=== PATIENT | male | born 1965 | race Caucasian/White ===

== ENCOUNTER 2022-02-22 13:18 | Emergency (ER) | payer OTHER ==
--- NOTE | 2022-02-22 13:23 | ERPHSYRPT ---
- History of Present Illness Time Seen by Provider: 02/22/22 13:22 Source: patient Exam Limitations: no limitations Physician History: This is a 56-year-old white male smoker of cigarettes and who is a patient of Dr. Mata who presents to the emergency department with shortness of breath and cough for 2 days. His significant other was hospitalized with influenza A infection. Patient denies chest pain. He denies abdominal pain. He has no nausea vomiting or diarrhea symptoms. He is an insulin-dependent diabetic and has hypertension. Timing/Duration: day(s) (2) Activities at Onset: none Severity of Dyspnea-Max: moderate Severity of Dyspnea-Current: moderate Possible Cause: no prior episodes Modifying Factors: Improves With: coughing, oxygen Associated Symptoms: cough, No chest pain/discomfort, No calf pain, No leg swelling Allergies/Adverse Reactions: albuterol Allergy (Verified 02/22/22 13:20) Home Medications: Empagliflozin/Metformin HCl [Synjardy Xr 25-1,000 mg Tablet] 1 each PO DAILY 02/22/22 [History] Escitalopram Oxalate [Lexapro] 20 mg PO DAILY 02/22/22 [History] Insulin Glargine,Hum.rec.anlog [Basaglar Kwikpen U-100] 50 unit SQ HS 02/22/22 [History] Insulin Lispro [Humalog Kwikpen] 10 unit SQ TIDWM 02/22/22 [History] Losartan Potassium 50 mg [Cozaar 50 MG] 50 mg PO DAILY 02/22/22 [History] Metoprolol Tartrate 25 mg [Lopressor 25MG Tab] 12.5 mg PO BID 02/22/22 [History] Omeprazole 20 mg PO DAILY 02/22/22 [History] Tizanidine HCl [Zanaflex] 1 mg PO BIDPRN PRN 02/22/22 [History] Travel Risk - International Travel Have you traveled outside of the country in past 3 weeks: No - Coronavirus Screening Are you exhibiting any of the following symptoms?: Yes Symptoms: Cough: New Onset, Shortness of Breath Close contact with a COVID-19 positive Pt in past 14-21 Days: No - Review of Systems Constitutional: No Symptoms Eyes: No Symptoms Ears, Nose, & Throat: No Symptoms Respiratory: Cough, Dyspnea Cardiac: No Symptoms Abdominal/Gastrointestinal: No Symptoms Genitourinary Symptoms: No Symptoms Musculoskeletal: No Symptoms Skin: No Symptoms Neurological: No Symptoms Psychological: No Symptoms Endocrine: No Symptoms Hematologic/Lymphatic: No Symptoms Immunological/Allergic: No Symptoms All Other Systems: Reviewed and Negative - Past Medical History Pertinent Past Medical History: Yes - Nursing Vital Signs Nursing Vital Signs: Initial Vital Signs Temperature 100.8 F 02/22/22 13:20 Pulse Rate 130 H 02/22/22 13:20 Respiratory Rate 32 H 02/22/22 13:20 Blood Pressure 146/126 02/22/22 13:20 O2 Sat by Pulse Oximetry 88 L 02/22/22 13:20 Pain Scale Pain Intensity 0 - Physical Exam General Appearance: mild distress, alert, anxiety, obese Eye Exam: PERRL/EOMI, eyes nml inspection Ears, Nose, Throat Exam: hearing grossly normal, normal ENT inspection, normal pharynx Neck Exam: normal inspection, non-tender, supple, full range of motion Respiratory Exam: normal breath sounds, lungs clear, respiratory distress (Mild), airway intact, No chest tenderness Cardiovascular/Chest Exam: normal heart sounds, regular rate/rhythm Abdominal/Gastrointestinal Exam: soft, normal bowel sounds, No tenderness Rectal Exam: not done Extremity Exam: non-tender, normal range of motion, normal inspection, no calf tenderness, no pedal edema, pelvis stable Neurologic Exam: alert, oriented x 3, cooperative, 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 STAT Care 02/22/22 13:42 Active EKG-ER Only STAT Care 02/22/22 13:41 Active IV Insertion STAT Care 02/22/22 13:41 Active POCT Glucose Check STAT Care 02/22/22 14:17 Active CHEST 1 VIEW (PORTABLE) Stat Exams 02/22/22 13:41 Completed CHEST WITH CONTRAST [CT] Stat Exams 02/22/22 14:47 Ordered ABG [ARTERIAL BLOOD GASES] Stat Lab 02/22/22 14:37 Completed BLOOD CULTURE Stat Lab 02/22/22 13:53 Received CBC W DIFF Stat Lab 02/22/22 13:45 Completed CMP Stat Lab 02/22/22 13:45 Completed CULTURE,URINE Stat Lab 02/22/22 14:37 Received D-DIMER QUANTITATIVE Stat Lab 02/22/22 13:45 Completed Lactic Acid Stat Lab 02/22/22 14:10 Completed Bandera Screen Stat Lab 02/22/22 Completed NT PRO BNP Stat Lab 02/22/22 13:45 Completed POCT GLUCOSE Stat Lab 02/22/22 14:16 Completed TROPONIN Q3H Lab 02/22/22 13:45 Completed TROPONIN Q3H Lab 02/22/22 16:45 Ordered TROPONIN Q3H Lab 02/22/22 19:45 Ordered TROPONIN Q3H Lab 02/22/22 22:45 Ordered TROPONIN Q3H Lab 02/23/22 01:45 Ordered UA W/RFX CULTURE Stat Lab 02/22/22 14:37 Completed Urine Triage Profile Stat Lab 02/22/22 14:17 Completed Medication Summary Discontinued Medications Generic Name Dose Route Start Last Admin Trade Name Freq PRN Reason Stop Dose Admin Hydrocodone Bitart/Acetaminophen 10 ml 02/22/22 13:42 02/22/22 13:47 Hydrocodone/Acetaminophen 5 Ml Udcup PO 02/22/22 13:43 10 ml STAT STA Administration Hydrocodone Bitart/Acetaminophen Confirm 02/22/22 13:45 Hydrocodone/Acetaminophen 5 Ml Udcup Administered 02/22/22 13:46 Dose 10 ml .ROUTE .STK-MED ONE Methylprednisolone Sodium 0 mg 02/22/22 13:41 02/22/22 13:47 Succinate 125 mg/ Sterile IV 02/22/22 13:42 125 mg Water 2 ml STAT ONE Administration Enoxaparin Sodium 100 mg 02/22/22 15:02 02/22/22 15:19 Enoxaparin Sodium 120 Mg/0.8 Ml Syringe SQ 02/22/22 15:03 100 mg STAT STA Administration Enoxaparin Sodium Confirm 02/22/22 15:16 Enoxaparin Sodium 120 Mg/0.8 Ml Syringe Administered 02/22/22 15:17 Dose 120 mg SQ .STK-MED ONE Furosemide 40 mg 02/22/22 14:30 02/22/22 14:31 Furosemide 40 Mg/4 Ml Vial IV 02/22/22 14:31 40 mg STAT ONE Administration Furosemide Confirm 02/22/22 14:30 Furosemide 40 Mg/4 Ml Vial Administered 02/22/22 14:31 Dose 40 mg .ROUTE .STK-MED ONE Sodium Chloride Confirm 02/22/22 14:26 Sodium Chloride 0.9% 1000 Ml Administered 02/22/22 14:27 Dose 1,000 mls @ ud .ROUTE .STK-MED ONE Lorazepam 1 mg 02/22/22 14:12 02/22/22 14:19 Lorazepam 2 Mg/1 Ml 2 Mg Vial IM 02/22/22 14:13 1 mg STAT ONE Administration Lorazepam Confirm 02/22/22 14:18 Lorazepam 2 Mg/1 Ml 2 Mg Vial Administered 02/22/22 14:19 Dose 2 mg .ROUTE .STK-MED ONE Lorazepam 0.5 mg 02/22/22 14:30 02/22/22 14:33 Lorazepam 1 Mg Tablet PO 02/22/22 14:31 Not Given STAT ONE Lorazepam 1 mg 02/22/22 14:36 02/22/22 14:30 Lorazepam 2 Mg/1 Ml 2 Mg Vial IV 02/22/22 14:37 1 mg STAT ONE Administration Methylprednisolone Sodium Succinate Confirm 02/22/22 13:46 Methylprednis Sod Succ 125 Mg/2 Ml Vial Administered 02/22/22 13:47 Dose 125 mg .ROUTE .STK-MED ONE Metoprolol Tartrate 5 mg 02/22/22 14:37 02/22/22 14:41 Metoprolol Tartrate 5 Mg/5 Ml Injection IV 02/22/22 14:38 5 mg STAT ONE Administration Metoprolol Tartrate Confirm 02/22/22 14:40 Metoprolol Tartrate 5 Mg/5 Ml Injection Administered 02/22/22 14:41 Dose 5 mg IV .STK-MED ONE Sodium Bicarbonate 50 meq 02/22/22 14:44 02/22/22 14:46 Sodium Bicarbonate 1 Meq/Ml 50ml Syringe IV 02/22/22 14:45 50 meq STAT ONE Administration Sodium Bicarbonate Confirm 02/22/22 14:45 Sodium Bicarbonate 1 Meq/Ml 50ml Syringe Administered 02/22/22 14:46 Dose 50 meq IV .STK-MED ONE Sterile Water Confirm 02/22/22 13:45 Water For Injection,Sterile 10 Ml Vial Administered 02/22/22 13:46 Dose 10 ml IJ .[place]-MED ONE Lab/Rad Data: Laboratory Result Diagrams 02/22/22 13:45 02/22/22 13:45 Laboratory Results 02/22/22 02/22/22 02/22/22 Range/Units Unknown 14:37 14:37 WBC (4.0-10.5) K/mm3 RBC (4.1-5.6) M/mm3 Hgb (12.5-18.0) gm/dl Hct (42-50) % MCV (78-100) fl MCH (26-32) pg MCHC (32-36) g/dl RDW (11.5-14.0) % Plt Count (150-450) K/mm3 MPV (7.5-11.0) fl Gran % (36.0-66.0) % Eos # (Auto) (0-0.5) Absolute Lymphs (auto) (1.0-4.6) Absolute Monos (auto) (0.0-1.3) Lymphocytes % (24.0-44.0) % Monocytes % (0.0-12.0) % Eosinophils % (0.00-5.0) % Basophils % (0.0-0.4) % Absolute Granulocytes (1.4-6.9) Basophils # (0-0.4) D-Dimer (215-500) ng/mL Puncture Site RIGHT BRACHIAL pCO2 62 H* (35-45) mmHg pO2 195 H* (75-100) mmHg Base Excess -5.5 L (-2.0-2.0) O2 Saturation 97.6 (94-100) g/dF ABG pH 7.19 L* (7.35-7.45) ABG HCO3 23.7 (22-28) ABG O2 Sat (Measured) 99.4 (95-100) % Ralph Test NOT APPLICABLE A-a Gradient 441 a/A Ratio 0.31 Hemoglobin 15.9 Carboxyhemoglobin 0.7 (0.0-6.9) % THgb Methemoglobin 1.1 L (1.4-1.5) % Temperature 37.0 C POC O2 Flow Rate 100 % Inspiratory BiPAP 12 Expiratory BiPAP 4 Sodium (137-145) mmol/L Potassium 3.6 (3.5-5.1) mmol/L Chloride (98-107) mmol/L Carbon Dioxide (22-30) mmol/L Anion Gap (5-15) MEQ/L BUN (9-20) mg/dL Creatinine (0.66-1.25) mg/dL Estimated GFR ML/MIN Glucose (74-106) mg/dL POC Glucometer (74 to 106) mg/dL Lactic Acid (0.4-2.0) Calcium (8.4-10.2) mg/dL Total Bilirubin (0.2-1.3) mg/dL AST (17-59) U/L ALT (0-50) U/L Alkaline Phosphatase (38-126) U/L Troponin I (0.000-0.034) ng/mL NT-Pro-B Natriuret Pep (0-900) pg/mL Serum Total Protein (6.3-8.2) g/dL Albumin (3.5-5.0) g/dL Urinalys Dipstick Clnc MAIN LAB Urine Color YELLOW (YELLOW) Urine Appearance CLEAR (CLEAR) Urine pH 5.5 (5-6) Ur Specific [place] 1.015 (1.005-1.025) POC Urine Protein Conf 100 (Negative) Urine Ketones MODERATE-40 (NEGATIVE) Urine Nitrite NEGATIVE (NEGATIVE) Urine Bilirubin NEGATIVE (NEGATIVE) Urine Urobilinogen 0.2 (0-1) mg/dL Urine Leukocytes NEGATIVE (NEGATIVE) Urine WBC (Auto) 0-2 (0-5) /HPF Urine RBC (Auto) 0-2 (0-2) /HPF Urine RBC MODERATE (0-5) Yoel/ul Ur Culture Indicated? YES Urine Glucose >=1000 (NEGATIVE) mg/dL Urine Opiates Level (NEGATIVE) Ur Methadone (NEGATIVE) Urine Barbiturates (NEGATIVE) Ur Phencyclidine (PCP) (NEGATIVE) Urine Amphetamine (NEGATIVE) U Benzodiazepine Level (NEGATIVE) Urine Cocaine (NEGATIVE) Urine Marijuana (THC) (NEGATIVE) Monoscreen NEGATIVE (Negative) Influenza Type A Ag (NEGATIVE) Influenza Type B Ag (NEGATIVE) RSV (PCR) (Negative) SARS-CoV-2 (PCR) (NEGATIVE) Group A Strep Antibody (NEGATIVE) 02/22/22 02/22/22 02/22/22 Range/Units 14:17 14:16 14:10 WBC (4.0-10.5) K/mm3 RBC (4.1-5.6) M/mm3 Hgb (12.5-18.0) gm/dl Hct (42-50) % MCV (78-100) fl MCH (26-32) pg MCHC (32-36) g/dl RDW (11.5-14.0) % Plt Count (150-450) K/mm3 MPV (7.5-11.0) fl Gran % (36.0-66.0) % Eos # (Auto) (0-0.5) Absolute Lymphs (auto) (1.0-4.6) Absolute Monos (auto) (0.0-1.3) Lymphocytes % (24.0-44.0) % Monocytes % (0.0-12.0) % Eosinophils % (0.00-5.0) % Basophils % (0.0-0.4) % Absolute Granulocytes (1.4-6.9) Basophils # (0-0.4) D-Dimer (215-500) ng/mL Puncture Site pCO2 (35-45) mmHg pO2 (75-100) mmHg Base Excess (-2.0-2.0) O2 Saturation (94-100) g/dF ABG pH (7.35-7.45) ABG HCO3 (22-28) ABG O2 Sat (Measured) (95-100) % Ralph Test A-a Gradient a/A Ratio Hemoglobin Carboxyhemoglobin (0.0-6.9) % THgb Methemoglobin (1.4-1.5) % Temperature C POC O2 Flow Rate % Inspiratory BiPAP Expiratory BiPAP Sodium (137-145) mmol/L Potassium (3.5-5.1) mmol/L Chloride (98-107) mmol/L Carbon Dioxide (22-30) mmol/L Anion Gap (5-15) MEQ/L BUN (9-20) mg/dL Creatinine (0.66-1.25) mg/dL Estimated GFR ML/MIN Glucose (74-106) mg/dL POC Glucometer 242 H (74 to 106) mg/dL Lactic Acid 1.9 (0.4-2.0) Calcium (8.4-10.2) mg/dL Total Bilirubin (0.2-1.3) mg/dL AST (17-59) U/L ALT (0-50) U/L Alkaline Phosphatase (38-126) U/L Troponin I (0.000-0.034) ng/mL NT-Pro-B Natriuret Pep (0-900) pg/mL Serum Total Protein (6.3-8.2) g/dL Albumin (3.5-5.0) g/dL Urinalys Dipstick Clnc Urine Color (YELLOW) Urine Appearance (CLEAR) Urine pH (5-6) Ur Specific [place] (1.005-1.025) POC Urine Protein Conf (Negative) Urine Ketones (NEGATIVE) Urine Nitrite (NEGATIVE) Urine Bilirubin (NEGATIVE) Urine Urobilinogen (0-1) mg/dL Urine Leukocytes (NEGATIVE) Urine WBC (Auto) (0-5) /HPF Urine RBC (Auto) (0-2) /HPF Urine RBC (0-5) Yoel/ul Ur Culture Indicated? Urine Glucose (NEGATIVE) mg/dL Urine Opiates Level NEGATIVE (NEGATIVE) Ur Methadone NEGATIVE (NEGATIVE) Urine Barbiturates NEGATIVE (NEGATIVE) Ur Phencyclidine (PCP) NEGATIVE (NEGATIVE) Urine Amphetamine NEGATIVE (NEGATIVE) U Benzodiazepine Level NEGATIVE (NEGATIVE) Urine Cocaine NEGATIVE (NEGATIVE) Urine Marijuana (THC) NEGATIVE (NEGATIVE) Monoscreen (Negative) Influenza Type A Ag (NEGATIVE) Influenza Type B Ag (NEGATIVE) RSV (PCR) (Negative) SARS-CoV-2 (PCR) (NEGATIVE) Group A Strep Antibody (NEGATIVE) 02/22/22 02/22/22 02/22/22 Range/Units 13:53 13:53 13:45 WBC (4.0-10.5) K/mm3 RBC (4.1-5.6) M/mm3 Hgb (12.5-18.0) gm/dl Hct (42-50) % MCV (78-100) fl MCH (26-32) pg MCHC (32-36) g/dl RDW (11.5-14.0) % Plt Count (150-450) K/mm3 MPV (7.5-11.0) fl Gran % (36.0-66.0) % Eos # (Auto) (0-0.5) Absolute Lymphs (auto) (1.0-4.6) Absolute Monos (auto) (0.0-1.3) Lymphocytes % (24.0-44.0) % Monocytes % (0.0-12.0) % Eosinophils % (0.00-5.0) % Basophils % (0.0-0.4) % Absolute Granulocytes (1.4-6.9) Basophils # (0-0.4) D-Dimer (215-500) ng/mL Puncture Site pCO2 (35-45) mmHg pO2 (75-100) mmHg Base Excess (-2.0-2.0) O2 Saturation (94-100) g/dF ABG pH (7.35-7.45) ABG HCO3 (22-28) ABG O2 Sat (Measured) (95-100) % Ralph Test A-a Gradient a/A Ratio Hemoglobin Carboxyhemoglobin (0.0-6.9) % THgb Methemoglobin (1.4-1.5) % Temperature C POC O2 Flow Rate % Inspiratory BiPAP Expiratory BiPAP Sodium (137-145) mmol/L Potassium (3.5-5.1) mmol/L Chloride (98-107) mmol/L Carbon Dioxide (22-30) mmol/L Anion Gap (5-15) MEQ/L BUN (9-20) mg/dL Creatinine (0.66-1.25) mg/dL Estimated GFR ML/MIN Glucose (74-106) mg/dL POC Glucometer (74 to 106) mg/dL Lactic Acid (0.4-2.0) Calcium (8.4-10.2) mg/dL Total Bilirubin (0.2-1.3) mg/dL AST (17-59) U/L ALT (0-50) U/L Alkaline Phosphatase (38-126) U/L Troponin I 0.291 H* (0.000-0.034) ng/mL NT-Pro-B Natriuret Pep (0-900) pg/mL Serum Total Protein (6.3-8.2) g/dL Albumin (3.5-5.0) g/dL Urinalys Dipstick Clnc Urine Color (YELLOW) Urine Appearance (CLEAR) Urine pH (5-6) Ur Specific [place] (1.005-1.025) POC Urine Protein Conf (Negative) Urine Ketones (NEGATIVE) Urine Nitrite (NEGATIVE) Urine Bilirubin (NEGATIVE) Urine Urobilinogen (0-1) mg/dL Urine Leukocytes (NEGATIVE) Urine WBC (Auto) (0-5) /HPF Urine RBC (Auto) (0-2) /HPF Urine RBC (0-5) Yole/ul Ur Culture Indicated? Urine Glucose (NEGATIVE) mg/dL Urine Opiates Level (NEGATIVE) Ur Methadone (NEGATIVE) Urine Barbiturates (NEGATIVE) Ur Phencyclidine (PCP) (NEGATIVE) Urine Amphetamine (NEGATIVE) U Benzodiazepine Level (NEGATIVE) Urine Cocaine (NEGATIVE) Urine Marijuana (THC) (NEGATIVE) Monoscreen (Negative) Influenza Type A Ag POSITIVE (NEGATIVE) Influenza Type B Ag NEGATIVE (NEGATIVE) RSV (PCR) NEGATIVE (Negative) SARS-CoV-2 (PCR) NEGATIVE (NEGATIVE) Group A Strep Antibody NOT DETECTED (NEGATIVE) 02/22/22 02/22/22 02/22/22 Range/Units 13:45 13:45 13:45 WBC 5.9 (4.0-10.5) K/mm3 RBC 4.93 (4.1-5.6) M/mm3 Hgb 15.0 (12.5-18.0) gm/dl Hct 41.6 L (42-50) % MCV 84.4 (78-100) fl MCH 30.4 (26-32) pg MCHC 36.1 H (32-36) g/dl RDW 12.8 (11.5-14.0) % Plt Count 209 (150-450) K/mm3 MPV 10.0 (7.5-11.0) fl Gran % 70.1 H (36.0-66.0) % Eos # (Auto) 0.02 (0-0.5) Absolute Lymphs (auto) 0.74 L (1.0-4.6) Absolute Monos (auto) 0.97 (0.0-1.3) Lymphocytes % 12.6 L (24.0-44.0) % Monocytes % 16.5 H (0.0-12.0) % Eosinophils % 0.3 (0.00-5.0) % Basophils % 0.5 (0.0-0.4) % Absolute Granulocytes 4.11 (1.4-6.9) Basophils # 0.03 (0-0.4) D-Dimer 548 H* (215-500) ng/mL Puncture Site pCO2 (35-45) mmHg pO2 (75-100) mmHg Base Excess (-2.0-2.0) O2 Saturation (94-100) g/dF ABG pH (7.35-7.45) ABG HCO3 (22-28) ABG O2 Sat (Measured) (95-100) % Ralph Test A-a Gradient a/A Ratio Hemoglobin Carboxyhemoglobin (0.0-6.9) % THgb Methemoglobin (1.4-1.5) % Temperature C POC O2 Flow Rate % Inspiratory BiPAP Expiratory BiPAP Sodium 131 L (137-145) mmol/L Potassium 4.0 (3.5-5.1) mmol/L Chloride 97 L (98-107) mmol/L Carbon Dioxide 21 L (22-30) mmol/L Anion Gap 17.0 H (5-15) MEQ/L BUN 10 (9-20) mg/dL Creatinine 0.52 L (0.66-1.25) mg/dL Estimated GFR > 60.0 ML/MIN Glucose 222 H (74-106) mg/dL POC Glucometer (74 to 106) mg/dL Lactic Acid (0.4-2.0) Calcium 8.8 (8.4-10.2) mg/dL Total Bilirubin 0.70 (0.2-1.3) mg/dL AST 24 (17-59) U/L ALT 14 (0-50) U/L Alkaline Phosphatase 49 (38-126) U/L Troponin I (0.000-0.034) ng/mL NT-Pro-B Natriuret Pep 2530 H (0-900) pg/mL Serum Total Protein 6.9 (6.3-8.2) g/dL Albumin 4.2 (3.5-5.0) g/dL Urinalys Dipstick Clnc Urine Color (YELLOW) Urine Appearance (CLEAR) Urine pH (5-6) Ur Specific [place] (1.005-1.025) POC Urine Protein Conf (Negative) Urine Ketones (NEGATIVE) Urine Nitrite (NEGATIVE) Urine Bilirubin (NEGATIVE) Urine Urobilinogen (0-1) mg/dL Urine Leukocytes (NEGATIVE) Urine WBC (Auto) (0-5) /HPF Urine RBC (Auto) (0-2) /HPF Urine RBC (0-5) Yoel/ul Ur Culture Indicated? Urine Glucose (NEGATIVE) mg/dL Urine Opiates Level (NEGATIVE) Ur Methadone (NEGATIVE) Urine Barbiturates (NEGATIVE) Ur Phencyclidine (PCP) (NEGATIVE) Urine Amphetamine (NEGATIVE) U Benzodiazepine Level (NEGATIVE) Urine Cocaine (NEGATIVE) Urine Marijuana (THC) (NEGATIVE) Monoscreen (Negative) Influenza Type A Ag (NEGATIVE) Influenza Type B Ag (NEGATIVE) RSV (PCR) (Negative) SARS-CoV-2 (PCR) (NEGATIVE) Group A Strep Antibody (NEGATIVE) - Progress Progress: improved, re-examined Air Movement: fair Progress Note: 02/22/22 14:38 Chest x-ray shows new diffuse bilateral hazy interstitial edema without consolidation. Medical decision making: This patient presented with hypoxia but this improved with placement of 2 L oxygen via nasal cannula. However, patient remains tachycardic and is very anxious. He shows bilateral pneumonias on chest x-ray. He has a BNP that is elevated and an elevated troponin with no acute changes on his 2 EKGs that we performed. Patient was asked 3 times whether or not he wanted to be intubated and he is refusing intubation. We are placing him on a BiPAP machine and we will sedate him. We did obtain information from the patient's significant other who states that he has not been taking his medicatio ns as prescribed including his antianxiety/depression medication. Patient is also refusing Rodriguez catheter placement. 02/22/22 14:43 Second EKG was performed on 02/22/2022 at 2:37 PM heart rate is 154 bpm. Sinus tachycardia with a regular rate. There is no acute ischemic changes from earlier EKG. The remainder of the EKG is unchanged when compared to the first EKG done today 02/22/22 15:03 3rd 12 lead ekg: Performed on 02/22/2022 at 2:58 PM heart rate is 117 bpm sinus tachycardia atrial premature complexes. Nonspecific T abnormalities in the lateral leads. 02/22/22 15:[address] Garcia at [facility] emergency department. I reviewed the patient history, EKG findings, laboratory results with him. He accepts the patient in transfer. Blood Culture(s) Obtained: Yes Counseled pt/family regarding: lab results, diagnosis, need for follow-up - Departure Departure Disposition: Transfer Clinical Impression: Hypoxia, Infiltrate of lung present on chest x-ray, Sinus tachycardia, Non- STEMI (non-ST elevated myocardial infarction), CHF (congestive heart failure) Condition: Serious Critical Care Time: Yes Critical Care Time(excluding separately billable procedures): Critical 30-74 mi ns (40 minutes) Referrals: CIARAN MATA DO [Primary Care Provider] - Follow up/PCP as directed Instructions: Heart Failure
[2022-02-22] MEDS ORDERED: solu-MEDROL 125 MG, Sterile H2O 10 ml 2 ML IV ONE ×2 (13:41)
[2022-02-22] MEDS ORDERED: HYDROCODONE-ACETAMIN 2.5-108/5 ML SOLUTION PO STA (13:42)
[2022-02-22] MEDS ORDERED: Sterile H2O 10 ml IJ ONE (13:45)
[2022-02-22] MEDS ORDERED: HYDROCODONE-ACETAMIN 2.5-108/5 ML SOLUTION ONE (13:45)
[2022-02-22] MEDS ORDERED: solu-MEDROL ONE (13:46)
[2022-02-22 13:57] LABS: Absolute Neutrophil Ct (ANC) 4.11 (1.4-6.9); Basophil (Absolute #) 0.03 (0-0.4); Eosinophil % 0.3 % (0.00-5.0); Eosinophil (Absolute #) 0.02 (0-0.5); Hematocrit 41.6 % (42-50); Lymphocyte (Absolute #) 0.74 (1.0-4.6); Lymphocytes % 12.6 % (24.0-44.0); Mean Cell Volume 84.4 fl (78-100); Mean Corpuscular Hemoglobin 30.4 pg (26-32); Mean Corpuscular Hgb Concent. 36.1 g/dl (32-36); Monocyte (Absolute #) 0.97 (0.0-1.3); Monocytes % 16.5 % (0.0-12.0); Neutrophil % 70.1 % (36.0-66.0); Platelet Count 209 K/mm3 (150-450); Red Blood Count 4.93 M/mm3 (4.1-5.6); Red Cell Distribution Width 12.8 % (11.5-14.0); White Blood Count 5.9 K/mm3 (4.0-10.5)
[2022-02-22 14:07] LABS: ALBUMIN 4.2 g/dL (3.5-5.0); ALKALINE PHOSPHATASE 49 U/L (38-126); BLOOD UREA NITROGEN 10 mg/dL (9-20); CHLORIDE 97 mmol/L (98-107); Calcium 8.8 mg/dL (8.4-10.2); Carbon Dioxide 21 mmol/L (22-30); Creatinine 1 0.52 mg/dL (0.66-1.25); EST GLOMERULAR FILTRATION RATE > 60.0 ML/MIN; Glucose 222 mg/dL (74-106); NT PRO BNP 2530 pg/mL (0-900); SGOT/AST 24 U/L (17-59); SGPT/ALT 14 U/L (0-50); SODIUM 131 mmol/L (137-145); Total Protein 6.9 g/dL (6.3-8.2)
--- NOTE | 2022-02-22 14:09 | XRAY ---
Indication: Cough and short of breath. Comparison: May 09, 2021. Portable chest demonstrates new diffuse bilateral hazy interstitial edema without consolidation, large effusion, or cardiomegaly. Bony thorax intact again with mild degenerative changes.
[2022-02-22] MEDS ORDERED: Ativan 2 MG/1 ML VIAL IM ONE (14:12)
[2022-02-22] MEDS ORDERED: Ativan 2 MG/1 ML VIAL ONE (14:18)
[2022-02-22] MEDS ORDERED: Sodium Chloride 0.9% 1000 ML 0 ML ONE (14:26)
[2022-02-22] MEDS ORDERED: Lasix 40 MG/4 ML IV ONE (14:30)
[2022-02-22] MEDS ORDERED: Ativan 1 MG PO ONE (14:30)
[2022-02-22] MEDS ORDERED: Lasix 40 MG/4 ML ONE (14:30)
[2022-02-22] MEDS ORDERED: Ativan 2 MG/1 ML VIAL IV ONE (14:36)
[2022-02-22] MEDS ORDERED: LOPRESSOR 5 MG/5 ML INJECTION IV ONE ×2 (14:37→14:40)
[2022-02-22 14:38] LABS: A-aADO2 441; ABG HEMOGLOBIN 15.9; ABG POTASSIUM 3.6 (3.5-5.1); ARTERIAL BLD GAS O2 SATURATION 99.4 % (95-100); ARTERIAL BLOOD GAS BASE EXCESS -5.5 (-2.0-2.0); ARTERIAL BLOOD GAS FIO2 100 %; ARTERIAL BLOOD GAS PO2 195 mmHg (75-100); ARTERIAL BLOOD GAS pH 7.19 (7.35-7.45); CARBOXYHEMOGLOBIN 0.7 % THgb (0.0-6.9); HCO3- 23.7 (22-28); HGB O2 SAT 97.6 g/dF (94-100); Methhemoglobin 1.1 % (1.4-1.5)
[2022-02-22 14:38] LABS: INFLUENZA B NEGATIVE (NEGATIVE); RESPIRATORY SYNCTIAL VIRUS NEGATIVE (Negative); SARS-CoV-2 Xpert Express NEGATIVE (NEGATIVE)
[2022-02-22 14:39] LABS: Amphetamine,Urine NEGATIVE (NEGATIVE); Barbiturate,Urine NEGATIVE (NEGATIVE); Benzodiazepine,Urine NEGATIVE (NEGATIVE); Cocaine,Urine NEGATIVE (NEGATIVE); Methadone,Urine NEGATIVE (NEGATIVE); Opiate,Urine NEGATIVE (NEGATIVE); PCP,Urine NEGATIVE (NEGATIVE); THC,Urine NEGATIVE (NEGATIVE)
[2022-02-22 14:39] LABS: ABG SITE RIGHT BRACHIAL; ARTERIAL BLOOD GAS PCO2 62 mmHg (35-45)
[2022-02-22] MEDS ORDERED: SODIUM BICARBONATE 50 MEQ/50 ML ABBOJECT IV ONE ×2 (14:44→14:45)
[2022-02-22 14:50] LABS: RBC 0-2 /HPF (0-2); WBC 0-2 /HPF (0-5)
[2022-02-22 14:51] LABS: INFLUENZA A POSITIVE (NEGATIVE)
[2022-02-22 14:53] LABS: Appearance CLEAR (CLEAR); Bilirubin NEGATIVE (NEGATIVE); Glucose >=1000 mg/dL (NEGATIVE); Ketones MODERATE-40 (NEGATIVE); Nitrite NEGATIVE (NEGATIVE); Ph 5.5 (5-6); Protein,Urine Dip 100 (Negative); RBC MODERATE Ery/ul (0-5); Specific Gravity 1.015 (1.005-1.025); Urobilinogen 0.2 mg/dL (0-1)
[2022-02-22 14:54] LABS: Dipstick done @ ? MAIN LAB; Urine Cultured Indicated? YES
[2022-02-22] MEDS ORDERED: ENOXAPARIN SODIUM SQ STA (15:02)
[2022-02-22] MEDS ORDERED: ENOXAPARIN SODIUM SQ ONE (15:16)
[2022-02-22 15:33] VITALS: BP 132/85; PULSE 110; O2SAT 100
== END 2022-02-22 16:30 | disposition short-term general hospital (02) ==
LOC: ED 13:18
DX: I21.4 Non-ST elevation (NSTEMI) myocardial infarction (principal); I11.0 Hypertensive heart disease with heart failure; I50.9 Heart failure, unspecified; R00.0 Tachycardia, unspecified; R09.02 Hypoxemia; R91.8 Other nonspecific abnormal finding of lung field; J10.00 Influenza due to other identified influenza virus with unspecified type of pneumonia; R05.1 Acute cough; R06.02 Shortness of breath; E11.9 Type 2 diabetes mellitus without complications; Z72.0 Tobacco use; Z20.828 Contact with and (suspected) exposure to other viral communicable diseases; Z79.4 Long term (current) use of insulin; Z79.899 Other long term (current) drug therapy
CPT/HCPCS: 0241U; 36000; 36415; 36600; 71045; 80053; 80307; 81015; 82375; 82803; 82947; 83605; 83880; 84484; 85025; 85379; 86308; 87040; 87086; 87651; 93005; 93041; 94002; 96372; 96374; 96375; 96376; 99285; 99291; J1650; J1940; J2060; J2930; A9270-GY

== ENCOUNTER 2022-03-12 19:20 | Emergency (ER) | payer OTHER ==
[2022-03-12] MEDS ORDERED: CARDIZEM DRIP 100 MG/100 ML D5W 100 ML IV ONE (19:55)
[2022-03-12] MEDS ORDERED: Cardizem IV 50 MG/10 ML IV ONE ×3 (19:56→20:55)
[2022-03-12] MEDS ORDERED: CARDIZEM DRIP 100 MG/100 ML D5W 100 ML IV PRN (20:00)
[2022-03-12 20:15] LABS: Absolute Neutrophil Ct (ANC) 4.35 (1.4-6.9); Basophil (Absolute #) 0.08 (0-0.4); Eosinophil (Absolute #) 0.09 (0-0.5); Lymphocyte (Absolute #) 3.51 (1.0-4.6); Lymphocytes % 38.9 % (24.0-44.0); Mean Cell Volume 83.5 fl (78-100); Mean Corpuscular Hemoglobin 29.7 pg (26-32); Mean Corpuscular Hgb Concent. 35.6 g/dl (32-36); Mean Platelet Volume 9.6 fl (7.5-11.0); Monocyte (Absolute #) 0.99 (0.0-1.3); Neutrophil % 48.2 % (36.0-66.0); Platelet Count 317 K/mm3 (150-450); Red Blood Count 5.39 M/mm3 (4.1-5.6); Red Cell Distribution Width 12.2 % (11.5-14.0)
[2022-03-12 20:37] LABS: ALBUMIN 3.9 g/dL (3.5-5.0); ALKALINE PHOSPHATASE 54 U/L (38-126); ANION GAP 19.5 MEQ/L (5-15); BLOOD UREA NITROGEN 20 mg/dL (9-20); CHLORIDE 98 mmol/L (98-107); Calcium 9.2 mg/dL (8.4-10.2); Carbon Dioxide 17 mmol/L (22-30); Creatinine 1 0.65 mg/dL (0.66-1.25); EST GLOMERULAR FILTRATION RATE > 60.0 ML/MIN; Glucose 293 mg/dL (74-106); Potassium 4.1 mmol/L (3.5-5.1); SGOT/AST 20 U/L (17-59); SGPT/ALT 15 U/L (0-50); SODIUM 131 mmol/L (137-145); Total Protein 6.8 g/dL (6.3-8.2)
[2022-03-12 20:43] LABS: Appearance CLEAR (CLEAR); Bilirubin NEGATIVE (NEGATIVE); Glucose 500 mg/dL (NEGATIVE); Ketones SMALL-15 (NEGATIVE)
[2022-03-12 20:44] LABS: Dipstick done @ ? MAIN LAB; Nitrite NEGATIVE (NEGATIVE); Ph 5.5 (5-6); Protein,Urine Dip NEGATIVE (Negative); RBC TRACE-INTACT Ery/ul (0-5); Urobilinogen 0.2 mg/dL (0-1)
[2022-03-12 20:45] LABS: Urine Cultured Indicated? NO
[2022-03-12 20:49] LABS: Amphetamine,Urine NEGATIVE (NEGATIVE); Barbiturate,Urine NEGATIVE (NEGATIVE); Benzodiazepine,Urine NEGATIVE (NEGATIVE); Cocaine,Urine NEGATIVE (NEGATIVE); Methadone,Urine NEGATIVE (NEGATIVE); Opiate,Urine NEGATIVE (NEGATIVE); PCP,Urine NEGATIVE (NEGATIVE); THC,Urine NEGATIVE (NEGATIVE)
[2022-03-12] MEDS ORDERED: Lopressor 50 MG PO ONE (20:57)
[2022-03-12] MEDS ORDERED: Lopressor 50 MG ONE (20:57)
--- NOTE | 2022-03-12 21:08 | ERPHSYRPT ---
- History of Present Illness Source: EMS Exam Limitations: clinical condition (Pt post-ictal) Patient Subjective Stated Complaint: pt radha states that he dropped on the bed as if he were having a seizure, then came to and could not answer questions, did not know his name, appeared confused. radha states he has a history of seizures related to alcohol. she states he is supposed to be wearing a life vest but did not wear it today. Triage Nursing Assessment: pt appears lrthargic, cannot answer questions appropriatly. Physician History: 56 yo wm w h/o DM/Cardiomyopathy/Afib/Htn/seizure do/Alcohol abuse presents per EMS in post-ictal state. Pt's SO states that he collapsed on his bed after emptying the trailer toilet. He has seizures due to alcohol abuse, but SO states that she does not believe that he has been drinking. Pt lost control of his bladder. His heart rate appeared to be under 100 upon arrival, but he developed Afib w RVR shortly after arrival. IV access started/15mg IV Cardizem given/Cardizem drip started. Pt moving all 4 extremities and oriented to name only. Timing/Duration: sudden Severity: moderate Baseline/Normal Cognition: alert oriented x 3 Current Cognition: alert but confused Baseline Gait: walks w/o assistance Associated Symptoms: confusion, No fatigue, No fever, No chills, No loss of consciousness, No nausea, No vomiting, No weakness, No insomnia, No muscle spasms, No numbness/tingling in legs/feet, No paresthesia, No ringing in ears, No seizures, No slurred speech, No trouble walking, No vision changes, No chest pain, No headache Allergies/Adverse Reactions: albuterol Allergy (Verified 03/12/22 19:44) Home Medications: Escitalopram Oxalate [Lexapro] 20 mg PO DAILY 02/22/22 [History] Insulin Glargine,Hum.rec.anlog [Basaglar Kwikpen U-100] 50 unit SQ HS 02/22/22 [History] Insulin Lispro [Humalog Kwikpen] 10 unit SQ TIDWM 02/22/22 [History] Metoprolol Tartrate 25 mg [Lopressor 25MG Tab] 25 mg PO DAILY 02/22/22 [History] Omeprazole 20 mg PO DAILY 02/22/22 [History] Tizanidine HCl [Zanaflex] 2 mg PO Q6HPRN PRN 02/22/22 [History] Hx Tetanus, Diphtheria Vaccination/Date Given: Yes Hx Influenza Vaccination/Date Given: No Hx Pneumococcal Vaccination/Date Given: No Travel Risk - International Travel Have you traveled outside of the country in past 3 weeks: No - Coronavirus Screening Are you exhibiting any of the following symptoms?: No Close contact with a COVID-19 positive Pt in past 14-21 Days: No - Vaccine Status Have you recieved a Covid-19 vaccination: Yes [employer]: Moderna - Vaccination Dates Date of 2cond Vaccination (if applicable): unknown - Review of Systems Constitutional: No Symptoms, Fatigue Eyes: No Symptoms Ears, Nose, & Throat: No Symptoms Respiratory: No Symptoms Cardiac: No Symptoms, Palpitations Abdominal/Gastrointestinal: No Symptoms Genitourinary Symptoms: No Symptoms Musculoskeletal: No Symptoms Skin: No Symptoms Neurological: No Symptoms Psychological: No Symptoms Endocrine: No Symptoms Hematologic/Lymphatic: No Symptoms Immunological/Allergic: No Symptoms - Past Medical History Pertinent Past Medical History: Yes Neurological History: No Pertinent History ENT History: No Pertinent History Cardiac History: No Pertinent History, High Cholesterol, Hypertension Respiratory History: COPD Endocrine Medical History: Diabetes Type II Musculoskeletal History: No Pertinent History GI Medical History: GERD History: No Pertinent History Psycho-Social History: No Pertinent History Male Reproductive Disorders: No Pertinent History - Past Surgical History Past Surgical History: No Neuro Surgical History: No Pertinent History Cardiac: No Pertinent History Respiratory: No Pertinent History Gastrointestinal: No Pertinent History Genitourinary: No Pertinent History Musculoskeletal: No Pertinent History Male Surgical History: No Pertinent History - Social History Smoking Status: Current every day smoker How long have you smoked: years Exposure to second hand smoke: Yes Drug Use: none Patient Lives Alone: No Significant Family History: no pertinent family hx - Nursing Vital Signs Nursing Vital Signs: Initial Vital Signs Temperature 100.5 F 03/12/22 19:21 Pulse Rate 81 03/12/22 19:21 Respiratory Rate 18 03/12/22 19:21 Blood Pressure 93/75 03/12/22 19:21 O2 Sat by Pulse Oximetry 98 03/12/22 19:21 Pain Scale Pain Intensity 0 Hypotension w subsequent normotensive measurements/Febrile - Ariella Coma Scale Best Eye Response (Ariella): (4) open spontaneously Best Verbal Response (Ariella): (4) confused conversation Best Motor Response ([place]): (6) obeys commands Ariella Total: 14 - Physical Exam General Appearance: no apparent distress, lethargy (Post-ictal) Eye Exam: bilateral eye: normal inspection, PERRL, EOMI Ears, Nose, Throat Exam: normal ENT inspection, TMs normal, pharynx normal, moist mucous membranes Neck Exam: normal inspection, non-tender, supple, full range of motion, No meningismus, No Brudzinski, No Kernig's Respiratory: normal breath sounds, lungs clear, airway intact, No respiratory distress Cardiovascular: tachycardia (Afib w RVR) Gastrointestinal: soft, normal bowel sounds, No tenderness Back Exam: normal inspection, normal range of motion, No CVA tenderness, No vertebral tenderness Extremity Exam: normal inspection, normal range of motion Peripheral Pulses: carotid (R): 2+, carotid (L): 2+ Mental Status: disoriented to place, disoriented to time, 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 Exam: normal hearing, PERRL Motor/Sensory: no motor deficit, no sensory deficit, no pronator drift, negative Babinski's sign DTR: bicep (R): 2+, bicep (L): 2+ Skin Exam: normal color, warm, dry SpO2 Interpretation: normal SpO2: 98 O2 Delivery: Room Air - Course Nursing assessment & vital signs reviewed: Yes EKG Interpreted by Me: RATE (Afib w RVR/Prolonged QTc/Poor Rwave progression/Nonspecific ST-Twave changes) - CT Exams Head CT Interpretation: Discussed w/radiologist (6x3.5x6.4 hypoattenuation L anterior parietal lobe wo mass effect/Rec MRI to r/o mass) Ordered Tests: Active Orders 24 hr Category Date Time Status EKG-ER Only STAT Care 03/12/22 19:27 Completed IV Insertion STAT Care 03/12/22 19:27 Completed HEAD WITHOUT CONTRAST [CT] Stat Exams 03/12/22 19:28 Taken Alcohol [ETHYL ALCOHOL] Stat Lab 03/12/22 20:20 Completed CBC W DIFF Stat Lab 03/12/22 19:27 Completed CMP Stat Lab 03/12/22 20:20 Completed TROPONIN Q3H Lab 03/12/22 21:15 Completed UA W/RFX CULTURE Stat Lab 03/12/22 20:28 Completed Urine Triage Profile Stat Lab 03/12/22 20:28 Completed Medication Summary Discontinued Medications Generic Name Dose Route Start Last Admin Trade Name Freq PRN Reason Stop Dose Admin Diltiazem HCl Confirm 03/12/22 19:56 Diltiazem Hcl Iv 5 Mg/Ml Vial Administered 03/12/22 19:57 Dose 50 mg IV .STK-MED ONE Diltiazem HCl 15 mg 03/12/22 20:00 03/12/22 20:02 Diltiazem Hcl Iv 5 Mg/Ml Vial IV 03/12/22 20:01 15 mg STAT ONE Administration Diltiazem HCl 10 mg 03/12/22 20:55 03/12/22 20:57 Diltiazem Hcl Iv 5 Mg/Ml Vial IV 03/12/22 20:56 10 mg STAT ONE Administration Diltiazem HCl Confirm 03/12/22 19:55 Cardizem Drip 100 Mg/100 Ml D5w Administered 03/12/22 19:56 Dose 100 mls @ ud IV .STK-MED ONE Diltiazem HCl 100 mls @ 5 mls/hr 03/12/22 20:00 03/12/22 20:54 Cardizem Drip 100 Mg/100 Ml D5w IV 04/11/22 19:59 10 mg/hr .Q20H PRN 10 mls/hr HEART RATE/ A-FIB Titration Protocol 5 MG/HR Metoprolol Tartrate 50 mg 03/12/22 20:57 03/12/22 20:58 Metoprolol Tartrate 50 Mg Tablet PO 03/12/22 20:58 50 mg STAT ONE Administration Metoprolol Tartrate Confirm 03/12/22 20:57 Metoprolol Tartrate 50 Mg Tablet Administered 03/12/22 20:58 Dose 50 mg .ROUTE .STK-MED ONE Lab/Rad Data: Laboratory Result Diagrams 03/12/22 19:27 03/12/22 20:20 Laboratory Results 03/12/22 03/12/22 03/12/22 Range/Units 21:40 21:15 20:28 WBC (4.0-10.5) K/mm3 RBC (4.1-5.6) M/mm3 Hgb (12.5-18.0) gm/dl Hct (42-50) % MCV (78-100) fl MCH (26-32) pg MCHC (32-36) g/dl RDW (11.5-14.0) % Plt Count (150-450) K/mm3 MPV (7.5-11.0) fl Gran % (36.0-66.0) % Eos # (Auto) (0-0.5) Absolute Lymphs (auto) (1.0-4.6) Absolute Monos (auto) (0.0-1.3) Lymphocytes % (24.0-44.0) % Monocytes % (0.0-12.0) % Eosinophils % (0.00-5.0) % Basophils % (0.0-0.4) % Absolute Granulocytes (1.4-6.9) Basophils # (0-0.4) Sodium (137-145) mmol/L Potassium (3.5-5.1) mmol/L Chloride (98-107) mmol/L Carbon Dioxide (22-30) mmol/L Anion Gap (5-15) MEQ/L BUN (9-20) mg/dL Creatinine (0.66-1.25) mg/dL Estimated GFR ML/MIN Glucose (74-106) mg/dL Calcium (8.4-10.2) mg/dL Total Bilirubin (0.2-1.3) mg/dL AST (17-59) U/L ALT (0-50) U/L Alkaline Phosphatase (38-126) U/L Troponin I 0.013 (0.000-0.034) ng/mL Serum Total Protein (6.3-8.2) g/dL Albumin (3.5-5.0) g/dL Urinalys Dipstick Clnc MAIN LAB Urine Color YELLOW (YELLOW) Urine Appearance CLEAR (CLEAR) Urine pH 5.5 (5-6) Ur Specific [place] 1.020 (1.005-1.025) POC Urine Protein Conf NEGATIVE (Negative) Urine Ketones SMALL-15 (NEGATIVE) Urine Nitrite NEGATIVE (NEGATIVE) Urine Bilirubin NEGATIVE (NEGATIVE) Urine Urobilinogen 0.2 (0-1) mg/dL Urine Leukocytes NEGATIVE (NEGATIVE) Urine WBC (Auto) NONE (0-5) /HPF Urine RBC (Auto) NONE (0-2) /HPF U Epithel Cells (Auto) NONE (FEW) /HPF Urine Bacteria (Auto) NONE (NEGATIVE) /HPF Urine RBC TRACE-INTACT (0-5) Yoel/ul Ur Culture Indicated? NO Urine Glucose 500 (NEGATIVE) mg/dL Urine Opiates Level (NEGATIVE) Ur Methadone (NEGATIVE) Urine Barbiturates (NEGATIVE) Ur Phencyclidine (PCP) (NEGATIVE) Urine Amphetamine (NEGATIVE) U Benzodiazepine Level (NEGATIVE) Urine Cocaine (NEGATIVE) Urine Marijuana (THC) (NEGATIVE) Ethyl Alcohol (0-10) mg/dL Influenza Type A Ag POSITIVE (NEGATIVE) Influenza Type B Ag NEGATIVE (NEGATIVE) RSV (PCR) NEGATIVE (Negative) SARS-CoV-2 (PCR) NEGATIVE (NEGATIVE) 03/12/22 03/12/22 03/12/22 Range/Units 20:28 20:20 20:20 WBC (4.0-10.5) K/mm3 RBC (4.1-5.6) M/mm3 Hgb (12.5-18.0) gm/dl Hct (42-50) % MCV (78-100) fl MCH (26-32) pg MCHC (32-36) g/dl RDW (11.5-14.0) % Plt Count (150-450) K/mm3 MPV (7.5-11.0) fl Gran % (36.0-66.0) % Eos # (Auto) (0-0.5) Absolute Lymphs (auto) (1.0-4.6) Absolute Monos (auto) (0.0-1.3) Lymphocytes % (24.0-44.0) % Monocytes % (0.0-12.0) % Eosinophils % (0.00-5.0) % Basophils % (0.0-0.4) % Absolute Granulocytes (1.4-6.9) Basophils # (0-0.4) Sodium 131 L (137-145) mmol/L Potassium 4.1 (3.5-5.1) mmol/L Chloride 98 (98-107) mmol/L Carbon Dioxide 17 L (22-30) mmol/L Anion Gap 19.5 H (5-15) MEQ/L BUN 20 (9-20) mg/dL Creatinine 0.65 L (0.66-1.25) mg/dL Estimated GFR > 60.0 ML/MIN Glucose 293 H (74-106) mg/dL Calcium 9.2 (8.4-10.2) mg/dL Total Bilirubin 0.70 (0.2-1.3) mg/dL AST 20 (17-59) U/L ALT 15 (0-50) U/L Alkaline Phosphatase 54 (38-126) U/L Troponin I (0.000-0.034) ng/mL Serum Total Protein 6.8 (6.3-8.2) g/dL Albumin 3.9 (3.5-5.0) g/dL Urinalys Dipstick Clnc Urine Color (YELLOW) Urine Appearance (CLEAR) Urine pH (5-6) Ur Specific [place] (1.005-1.025) POC Urine Protein Conf (Negative) Urine Ketones (NEGATIVE) Urine Nitrite (NEGATIVE) Urine Bilirubin (NEGATIVE) Urine Urobilinogen (0-1) mg/dL Urine Leukocytes (NEGATIVE) Urine WBC (Auto) (0-5) /HPF Urine RBC (Auto) (0-2) /HPF U Epithel Cells (Auto) (FEW) /HPF Urine Bacteria (Auto) (NEGATIVE) /HPF Urine RBC (0-5) Yoel/ul Ur Culture Indicated? Urine Glucose (NEGATIVE) mg/dL Urine Opiates Level NEGATIVE (NEGATIVE) Ur Methadone NEGATIVE (NEGATIVE) Urine Barbiturates NEGATIVE (NEGATIVE) Ur Phencyclidine (PCP) NEGATIVE (NEGATIVE) Urine Amphetamine NEGATIVE (NEGATIVE) U Benzodiazepine Level NEGATIVE (NEGATIVE) Urine Cocaine NEGATIVE (NEGATIVE) Urine Marijuana (THC) NEGATIVE (NEGATIVE) Ethyl Alcohol < 10 (0-10) mg/dL Influenza Type A Ag (NEGATIVE) Influenza Type B Ag (NEGATIVE) RSV (PCR) (Negative) SARS-CoV-2 (PCR) (NEGATIVE) 03/12/22 Range/Units 19:27 WBC 9.0 (4.0-10.5) K/mm3 RBC 5.39 (4.1-5.6) M/mm3 Hgb 16.0 (12.5-18.0) gm/dl Hct 45.0 (42-50) % MCV 83.5 (78-100) fl MCH 29.7 (26-32) pg MCHC 35.6 (32-36) g/dl RDW 12.2 (11.5-14.0) % Plt Count 317 (150-450) K/mm3 MPV 9.6 (7.5-11.0) fl Gran % 48.2 (36.0-66.0) % Eos # (Auto) 0.09 (0-0.5) Absolute Lymphs (auto) 3.51 (1.0-4.6) Absolute Monos (auto) 0.99 (0.0-1.3) Lymphocytes % 38.9 (24.0-44.0) % Monocytes % 11.0 (0.0-12.0) % Eosinophils % 1.0 (0.00-5.0) % Basophils % 0.9 (0.0-0.4) % Absolute Granulocytes 4.35 (1.4-6.9) Basophils # 0.08 (0-0.4) Sodium (137-145) mmol/L Potassium (3.5-5.1) mmol/L Chloride (98-107) mmol/L Carbon Dioxide (22-30) mmol/L Anion Gap (5-15) MEQ/L BUN (9-20) mg/dL Creatinine (0.66-1.25) mg/dL Estimated GFR ML/MIN Glucose (74-106) mg/dL Calcium (8.4-10.2) mg/dL Total Bilirubin (0.2-1.3) mg/dL AST (17-59) U/L ALT (0-50) U/L Alkaline Phosphatase (38-126) U/L Troponin I (0.000-0.034) ng/mL Serum Total Protein (6.3-8.2) g/dL Albumin (3.5-5.0) g/dL Urinalys Dipstick Clnc Urine Color (YELLOW) Urine Appearance (CLEAR) Urine pH (5-6) Ur Specific [place] (1.005-1.025) POC Urine Protein Conf (Negative) Urine Ketones (NEGATIVE) Urine Nitrite (NEGATIVE) Urine Bilirubin (NEGATIVE) Urine Urobilinogen (0-1) mg/dL Urine Leukocytes (NEGATIVE) Urine WBC (Auto) (0-5) /HPF Urine RBC (Auto) (0-2) /HPF U Epithel Cells (Auto) (FEW) /HPF Urine Bacteria (Auto) (NEGATIVE) /HPF Urine RBC (0-5) Yoel/ul Ur Culture Indicated? Urine Glucose (NEGATIVE) mg/dL Urine Opiates Level (NEGATIVE) Ur Methadone (NEGATIVE) Urine Barbiturates (NEGATIVE) Ur Phencyclidine (PCP) (NEGATIVE) Urine Amphetamine (NEGATIVE) U Benzodiazepine Level (NEGATIVE) Urine Cocaine (NEGATIVE) Urine Marijuana (THC) (NEGATIVE) Ethyl Alcohol (0-10) mg/dL Influenza Type A Ag (NEGATIVE) Influenza Type B Ag (NEGATIVE) RSV (PCR) (Negative) SARS-CoV-2 (PCR) (NEGATIVE) - Progress Progress Note: 03/12/22 21:[address] Chandra at [facility] 03/12/22 21:44 15mg IV Cardizem/Cardizem drip 5mg/Hr w adequate HR response Drip upped to 10mg/Hr and additional 10mg IV Cardizem bolus given when HR increased 50mg po Lopressor 03/12/22 22:23 Heart rate 110-115 when EMS assumed are of pt. No focal weakness/Oriented to name only/Great airway 03/12/22 22:25 Pt positive for FluA but was also + 02/22/22 Counseled pt/family regarding: lab results, diagnosis, rad results - Departure Departure Disposition: Transfer Clinical Impression: Atrial fibrillation with rapid ventricular response, Abnormal CT of brain Condition: Stable Critical Care Time: Yes Critical Care Time(excluding separately billable procedures): Critical 30-74 mins Referrals: CIARAN OSMAN, [Primary Care Provider] - Follow up/PCP as directed
[2022-03-12 22:10] VITALS: BP 118/84; PULSE 127
[2022-03-12 22:20] LABS: INFLUENZA B NEGATIVE (NEGATIVE); RESPIRATORY SYNCTIAL VIRUS NEGATIVE (Negative); SARS-CoV-2 Xpert Express NEGATIVE (NEGATIVE)
[2022-03-12 22:21] LABS: INFLUENZA A POSITIVE (NEGATIVE)
[2022-03-12 22:27] VITALS: O2SAT 98
--- NOTE | 2022-03-13 08:32 | XRAY ---
Indication: Seizure. Multiple contiguous axial images obtained through the head without contrast. Comparison: None Anterior left parietal lobe demonstrates a 6.0 x 3.5 x 6.4 cm focus of cortical/subcortical hypoattenuation without mass effect or acute hemorrhage. Primary consideration is for ischemia and less likely underlying mass. Elsewhere no acute intracranial hemorrhage, abnormal extra-axial fluid collection, or hydrocephalus. Bony calvarium intact. Paranasal sinuses and mastoid air cells are clear. Impression: Anterior left parietal hypoattenuation without mass effect or acute hemorrhage. Rule out acute ischemia versus mass. MRI brain with contrast exam may yield further information.
== END 2022-03-12 21:50 | disposition short-term general hospital (02) ==
LOC: ED 19:20
DX: I48.20 Chronic atrial fibrillation, unspecified (principal); R93.0 Abnormal findings on diagnostic imaging of skull and head, not elsewhere classified; R41.0 Disorientation, unspecified; E11.9 Type 2 diabetes mellitus without complications; I10 Essential (primary) hypertension; E78.5 Hyperlipidemia, unspecified; J44.9 Chronic obstructive pulmonary disease, unspecified; Z72.0 Tobacco use; Z79.4 Long term (current) use of insulin; Z79.899 Other long term (current) drug therapy; Z20.828 Contact with and (suspected) exposure to other viral communicable diseases
CPT/HCPCS: 0241U; 36000; 36415; 70450; 80053; 80307; 81015; 84484; 85025; 93005; 96374; 96376; 99285; 99291; A9270-GY; G0480

== ENCOUNTER 2023-06-06 12:37 | Emergency (ER) | payer OTHER ==
--- NOTE | 2023-06-06 13:08 | ERPHSYRPT ---
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 Rebolledo. Patient has had episodes of nausea vomiting and diarrhea in the last 4 days. He has minimal abdominal pain. He has had no nausea vomiting or diarrhea today. He denies chest pain, he denies shortness of breath, he denies cough, he denies hemoptysis, he has had no hem aturia, he has had no rectal bleeding, he has never had a colonoscopy or upper endoscopy in the past. Dr. Rebolledo since the patient over for further evaluation and workup. Patient is aware that we may not find a cause of his weight loss but we will do some laboratory and radiographic studies. He presents to the emergency department with 100% room air oxygenation saturation level and a systolic blood pressure of 119 and heart rate in the 70s to 80s. He is in no distress. Timing/Duration: other (Chronic) Severity: mild Associated Symptoms: nausea (Weight loss), vomiting, abdominal pain (No significant pain now but had some 4 days ago), other, No shortness of breath, No chest pain, No fever Allergies/Adverse Reactions: albuterol Allergy (Verified 06/06/23 13:02) Home Medications: Escitalopram Oxalate [Lexapro] 20 mg PO DAILY 02/22/22 [History] Insulin Lispro [Humalog Kwikpen] 10 unit SQ TIDWM 02/22/22 [History] Metoprolol Tartrate 25 mg [Lopressor 25MG Tab] 25 mg PO DAILY 02/22/22 [History] Omeprazole 20 mg PO DAILY 02/22/22 [History] Tizanidine HCl [Zanaflex] 2 mg PO Q6HPRN PRN 02/22/22 [History] Hx Tetanus, Diphtheria Vaccination/Date Given: Yes Hx Influenza Vaccination/Date Given: No Hx Pneumococcal Vaccination/Date Given: No Travel Risk - International Travel Have you traveled outside of the country in past 3 weeks: No - Coronavirus Screening Are you exhibiting any of the following symptoms?: No Close contact with a COVID-19 positive Pt in past 14-21 Days: No - Vaccine Status Have you recieved a Covid-19 vaccination: Yes 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 - Vaccination Dates Date of 2cond Vaccination (if applicable): unknown - Review of Systems Constitutional: No Symptoms Eyes: No Symptoms Ears, Nose, & Throat: No Symptoms Respiratory: No Symptoms Cardiac: No Symptoms Abdominal/Gastrointestinal: Other (Weight loss) Genitourinary Symptoms: No Symptoms Musculoskeletal: No Symptoms Skin: No Symptoms Neurological: No Symptoms Psychological: No Symptoms Endocrine: No Symptoms Hematologic/Lymphatic: No Symptoms Immunological/Allergic: No Symptoms All Other Systems: Reviewed and Negative - Past Medical History Pertinent Past Medical History: Yes Neurological History: No Pertinent History ENT History: No Pertinent History Cardiac History: No Pertinent History, High Cholesterol, Hypertension Respiratory History: COPD Endocrine Medical History: Diabetes Type II Musculoskeletal History: No Pertinent History GI Medical History: GERD History: No Pertinent History Psycho-Social History: No Pertinent History Male Reproductive Disorders: No Pertinent History - Past Surgical History Past Surgical History: No Neuro Surgical History: No Pertinent History Cardiac: No Pertinent History Respiratory: No Pertinent History Gastrointestinal: No Pertinent History Genitourinary: No Pertinent History Musculoskeletal: No Pertinent History Male Surgical History: No Pertinent History - Social History Smoking Status: Current every day smoker How long have you smoked: years Exposure to second hand smoke: Yes Drug Use: none Patient Lives Alone: No Significant Family History: no pertinent family hx - Nursing Vital Signs Nursing Vital Signs: Initial Vital Signs Temperature 97.2 F 06/06/23 12:57 Pulse Rate 80 06/06/23 12:57 Respiratory Rate 17 06/06/23 12:57 Blood Pressure 119/66 06/06/23 12:57 O2 Sat by Pulse Oximetry 99 06/06/23 12:57 Pain Scale Pain Intensity 3 - Physical Exam General Appearance: no apparent distress, alert Eye Exam: PERRL/EOMI, eyes nml inspection Ears, Nose, Throat Exam: normal ENT inspection, moist mucous membranes Neck Exam: normal inspection, non-tender, supple, full range of motion Respiratory Exam: normal breath sounds, lungs clear, airway intact, No chest tenderness, No respiratory distress Cardiovascular Exam: regular rate/rhythm, normal heart sounds, normal peripheral pulses Gastrointestinal/Abdomen Exam: soft, normal bowel sounds, No tenderness Rectal Exam: not done Back Exam: normal inspection, normal range of motion, No CVA tenderness, No vertebral tenderness Extremity Exam: normal inspection, normal range of motion, pelvis stable Neurologic Exam: alert, oriented x 3, cooperative, 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 as tested, normal mood/affect, nml cerebellar function, nml station & gait, sensation nml Skin Exam: normal color, warm, dry Lymphatic Exam: No adenopathy SpO2 Interpretation: normal O2 Delivery: Room Air - Course Nursing assessment & vital signs reviewed: Yes Ordered Tests: Active Orders 24 hr Category Date Time Status ABDOMEN AND PELVIS W/0 CONTRAS [CT] Stat Exams 06/06/23 13:35 Completed AMYLASE Stat Lab 06/06/23 14:00 Completed CBC W DIFF Stat Lab 06/06/23 14:00 Completed CMP Stat Lab 06/06/23 14:00 Completed LIPASE Stat Lab 06/06/23 14:00 Completed UA W/RFX UR CULTURE Stat Lab 06/06/23 14:07 Completed Lab/Rad Data: Laboratory Result Diagrams 06/06/23 14:00 06/06/23 14:00 Laboratory Results 06/06/23 06/06/23 06/06/23 Range/Units 14:07 14:00 14:00 WBC 8.1 (4.0-10.5) x10^3/uL RBC 4.58 (4.1-5.6) x10^6/uL Hgb 13.8 (12.5-18.0) g/dL Hct 39.5 L (42-50) % MCV 86.2 (78-100) fL MCH 30.1 (26-32) pg MCHC 34.9 (32-36) g/dL RDW 11.7 (11.5-14.0) % Plt Count 279 (150-450) x10^3/uL MPV 9.7 (7.5-11.0) fL Gran % 46.7 (36.0-66.0) % Immature Gran % (Auto) 0.2 (0.00-0.4) % Nucleat RBC Rel Count 0.0 (0.00-0.1) % Eos # (Auto) 0.10 (0-0.5) x10^3/uL Immature Gran # (Auto) 0.02 (0.00-0.03) x10^3u/L Absolute Lymphs (auto) 3.42 (1.0-4.6) x10^3/uL Absolute Monos (auto) 0.72 (0.0-1.3) x10^3/uL Absolute Nucleated RBC 0.00 (0.00-0.01) x10^3u/L Lymphocytes % 42.1 (24.0-44.0) % Monocytes % 8.9 (0.0-12.0) % Eosinophils % 1.2 (0.00-5.0) % Basophils % 0.9 (0.0-0.4) % Absolute Granulocytes 3.80 (1.4-6.9) x10^3/uL Basophils # 0.07 (0-0.4) x10^3/uL Sodium 136 L (137-145) mmol/L Potassium 3.4 L (3.5-5.1) mmol/L Chloride 100 (98-107) mmol/L Carbon Dioxide 26 (22-30) mmol/L Anion Gap 13.9 (5-15) MEQ/L BUN 9 (9-20) mg/dL Creatinine 0.47 L (0.66-1.25) mg/dL Estimated GFR > 60.0 ML/MIN Glucose 442 H (74-106) mg/dL Calcium 8.6 (8.4-10.2) mg/dL Total Bilirubin 0.30 (0.2-1.3) mg/dL AST 21 (17-59) U/L ALT 28 (0-50) U/L Alkaline Phosphatase 56 (38-126) U/L Serum Total Protein 6.3 (6.3-8.2) g/dL Albumin 4.0 (3.5-5.0) g/dL Amylase 45 (30-110) U/L Lipase 103 (23-300) U/L Urine Color Yellow (Yellow) Urine Appearance Clear (Clear) Urine pH 6.5 (4.6-8.0) Ur Specific [place] >=1.030 A (1.005-1.030) Urine Protein Negative (Negative) Urine Glucose (UA) >=1000 A (Negative) mg/dL Urine Ketones Negative (Negative) Urine Blood Negative (Negative) Urine Nitrite Negative (Negative) Urine Bilirubin Negative (Negative) Urine Urobilinogen 1.0 A (0.2) mg/dL Ur Leukocyte Esterase Negative (Negative) U Hyaline Cast (Auto) NONE SEEN (0-2) /LPF Urine Microscopic RBC 0-2 (0-5) /HPF Urine Microscopic WBC 0-2 (0-5) /HPF Ur Epithelial Cells None Seen (None Seen) /HPF Urine Bacteria None Seen (None Seen) /HPF Urine Culture Reflexed NO (NO) - Progress Progress: unchanged, re-examined Progress Note: 06/06/23 14:38 CAT scan of the abdomen pelvis without contrast was interpreted by the radiologist and I reviewed the impression. There is mild diffuse fecal stasis present. There are no acute other findings in the abdomen or pelvis. There are some chronic changes noted. This patient's medical issue is 1 of moderate complexity. Level complexity and the workup performed is based on review of the patient's past medical history, review of the patient's medication list, review of the patient's drug allergy list, history present illness and physical findings on examination. This patient's workup includes CBC, CMP, urinalysis and CAT scan of the abdomen pelvis. The above-stated CAT scan of the abdomen pelvis findings were noted. Patient does have hyperglycemia. There are no significant, acute, emergent findings on the CAT scan of abdomen pelvis. Patient states that he will take his diabetic medication as prescribed. He will follow-up with his primary care provider for further evaluation and management including referral to a multi share program coordinator for upper and lower endoscopy. Counseled pt/family regarding: lab results, diagnosis, need for follow-up, rad results Medical Desision Making - Diagnostic Testing Diagnostic test were ordered, analyzed, and reviewed by me: Yes Radiological Interpretation: Reviewed by me, Teleradiologist Report - Risk of complications The pt has a mod risk of morbidity or mortality based on: Need for prescription drug management - Departure Departure Disposition: Home Clinical Impression: Hyperglycemia, Weight loss, unintentional Condition: Stable Critical Care Time: No Referrals: CIARAN OSAMN DO [Primary Care Provider] - Follow up/PCP as directed Additional Instructions: Drink plenty of fluids. Take your medications at home. As soon as you arrive home today, check your blood sugar level and provide yourself with your medication as prescribed. Call your primary care provider today to make arrangements for follow-up appointment and further evaluation management of your unintentional weight loss. Prescriptions: Ondansetron ODT 4 MG [Zofran Odt 4 mg] 4 mg PO Q6H PRN PRN #10 tablet PRN Reason: Vomiting
[2023-06-06 13:15] VITALS: TEMP 97.2
--- NOTE | 2023-06-06 14:07 | XRAY ---
Indication: Abdomen pain and weight loss. Multiple contiguous axial images obtained through the abdomen and pelvis without contrast. Comparison: None Lung bases clear. Heart not enlarged. Stomach distended with food/fluid. Noncontrasted stomach and bowel loops appear nonobstructed with normal appendix. Mild diffuse scattered colonic fecal debris throughout. Partially contracted gallbladder without gallstones. 1.8 cm left mid renal exophytic cyst. No free fluid/air. Remaining liver, gallbladder, pancreas, spleen, adrenal glands, kidneys, ureters, and bladder are unremarkable for noncontrast exam. Mild scattered aortoiliac calcifications without AAA. Osseous structures intact with minimal degenerative changes throughout the spine. Incidental bilateral L5 spondylolysis without listhesis. Impression: 1. Mild diffuse fecal stasis. 2. Incidental left renal cyst, arteriosclerotic disease, and chronic bony findings. 3. Remaining CT abdomen/pelvis without contrast exam is negative.
[2023-06-06 14:10] LABS: BASOPHIL % 0.9 % (0.0-0.4); Basophil (Absolute #) 0.07 x10^3/uL (0-0.4); Eosinophil % 1.2 % (0.00-5.0); Hematocrit 39.5 % (42-50); Hemoglobin 13.8 g/dL (12.5-18.0); IMMATURE GRAN # 0.02 x10^3u/L (0.00-0.03); IMMATURE GRAN % 0.2 % (0.00-0.4); Lymphocyte (Absolute #) 3.42 x10^3/uL (1.0-4.6); Lymphocytes % 42.1 % (24.0-44.0); Mean Cell Volume 86.2 fL (78-100); Mean Corpuscular Hemoglobin 30.1 pg (26-32); Mean Corpuscular Hgb Concent. 34.9 g/dL (32-36); Mean Platelet Volume 9.7 fL (7.5-11.0); Monocyte (Absolute #) 0.72 x10^3/uL (0.0-1.3); Monocytes % 8.9 % (0.0-12.0); Neutrophil % 46.7 % (36.0-66.0); Platelet Count 279 x10^3/uL (150-450); Red Blood Count 4.58 x10^6/uL (4.1-5.6); Red Cell Distribution Width 11.7 % (11.5-14.0); White Blood Count 8.1 x10^3/uL (4.0-10.5)
[2023-06-06 14:20] LABS: Appearance Clear (Clear); Bacteria None Seen /HPF (None Seen); Bilirubin Negative (Negative); Blood Negative (Negative); Epithelial Cells None Seen /HPF (None Seen); Glucose, Urine >=1000 mg/dL (Negative); Hyaline Casts NONE SEEN /LPF (0-2); Ketones Negative (Negative); Leukocyte Esterase Negative (Negative); Nitrite Negative (Negative); Ph 6.5 (4.6-8.0); Protein,Urine Dip Negative (Negative); RBC 0-2 /HPF (0-5); Specific Gravity >=1.030 (1.005-1.030); WBC 0-2 /HPF (0-5)
[2023-06-06 14:23] LABS: ADD URINE CULTURE? NO (NO)
[2023-06-06 14:30] LABS: ALKALINE PHOSPHATASE 56 U/L (38-126); AMYLASE 45 U/L (30-110); ANION GAP 13.9 MEQ/L (5-15); BLOOD UREA NITROGEN 9 mg/dL (9-20); CHLORIDE 100 mmol/L (98-107); Calcium 8.6 mg/dL (8.4-10.2); Carbon Dioxide 26 mmol/L (22-30); Creatinine 1 0.47 mg/dL (0.66-1.25); EST GLOMERULAR FILTRATION RATE > 60.0 ML/MIN; Glucose 442 mg/dL (74-106); LIPASE 103 U/L (23-300); Potassium 3.4 mmol/L (3.5-5.1); SGOT/AST 21 U/L (17-59); SGPT/ALT 28 U/L (0-50); SODIUM 136 mmol/L (137-145); Total Protein 6.3 g/dL (6.3-8.2)
[2023-06-06 15:05] VITALS: BP 135/75; PULSE 84; RESP 15; O2SAT 98
== END 2023-06-06 15:02 | disposition home or self-care (01) ==
LOC: ED 12:37
DX: R63.4 Abnormal weight loss (principal); E11.65 Type 2 diabetes mellitus with hyperglycemia; I10 Essential (primary) hypertension; E78.5 Hyperlipidemia, unspecified; Z79.4 Long term (current) use of insulin; Z79.899 Other long term (current) drug therapy; Z72.0 Tobacco use
CPT/HCPCS: 36415; 74176; 80053; 81001; 82150; 83690; 85025; 99283